=== PATIENT | female | born 1995 | race Caucasian/White ===

== ENCOUNTER 2020-09-14 17:56 | Emergency (ER) | payer OTHER ==
[2020-09-14 18:06] VITALS: BP 135/87
[2020-09-14] MEDS ORDERED: predniSONE 20 MG TABLET PO STA (19:07)
--- NOTE | 2020-09-14 19:07 | ED Physician Documentation ---
History of Present Illness - Stated complaint Stated Complaint: L ELBOW/SHOULDER PAIN - Chief complaint Chief Complaint: Ext Problem - History obtained from History obtained from: Patient - Additonal information Additional information: 25-year-old woman was lifting at work today and developed burning deep left arm pain from the shoulder down to the elbow. She feels like the sensation is scratchy in that arm. She has a history of some sort of neck surgery for "bunched up nerves." She has some neck pain 2. Review of Systems Constitutional: reports: Reviewed and negative Ears: reports: Reviewed and negative Nose: reports: Reviewed and negative Throat: reports: Reviewed and negative Cardiac: reports: Reviewed and negative Respiratory: reports: Reviewed and negative PD PAST MEDICAL HISTORY - Past Medical History Past Medical History: No - Past Surgical History Past Surgical History: No - Present Medications Home Medications: Ambulatory Orders Medication Instructions Recorded Confirmed predniSONE [Deltasone] 20 mg PO [id number] #21 tab 09/14/20 - Allergies Allergies/Adverse Reactions: Allergies Allergy/AdvReac Type Severity Reaction Status Date / Time No Known Drug Allergies Allergy Verified 09/14/20 18:06 - Social History Does the pt smoke?: No Smoking Status: Never smoker PD ED PE NORMAL - Vitals Vital signs reviewed: Yes - General General: Alert and oriented X 3, No acute distress - HEENT HEENT: PERRL, EOMI - Neck Neck: Supple, no meningeal sign, No bony TTP - Extremities Extremities: Other (Some tenderness of the left side of the neck, not in the midline. She has relatively full range of motion at the shoulder and elbow. 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 We will start some steroids. She declined pain medication. Departure - Departure Disposition: 01 Home, Self Care Clinical Impression: Cervical radiculopathy Condition: Good Record reviewed to determine appropriate education?: Yes Instructions: ED Cervical Radiculopathy Prescriptions: predniSONE [Deltasone] 20 mg PO [id number] #21 tab Comments: As discussed, this is most consistent with a pinched nerve in your neck. Follow-up with your physician if not rapidly better. Return for new or worsening symptoms. Forms: Activity restrictions
== END 2020-09-14 19:25 | disposition home or self-care (01) ==
LOC: ED 17:56
DX: M54.12 Radiculopathy, cervical region (principal)
CPT/HCPCS: 99282; 99284; J7512

== ENCOUNTER 2020-09-16 13:59 | Emergency (ER) | payer OTHER ==
[2020-09-16] MEDS ORDERED: HYDROmorphone 1 MG/ML CARPUJECT IM STA (17:06)
--- NOTE | 2020-09-16 17:08 | ED Physician Documentation ---
History of Present Illness - Stated complaint Stated Complaint: LFT ARM PX/NUMBNESS - Chief complaint Chief Complaint: Trauma Ext - Additonal information Additional information: 25-year-old woman Presents to the emergency department for evaluation of lower neck and left arm pain. She was seen in this emergency department 2 days ago for similar. She reports that she was doing dishes and lifting heavy mats when the pain began. She reports that the pain alternates between a burning sensation and a cold sensation that radiates down into her shoulder and left arm. She has a history of some sort of neck surgery for "bunched up nerves." Patient denies any falls or trauma. She was prescribed a 10-day course of prednisone for suspected nerve impingement with last ED visit however patient feels that the pain is worsened. Since being seen in the ER she has begun wearing a sling. Review of Systems Constitutional: reports: Reviewed and negative Ears: reports: Reviewed and negative Throat: reports: Reviewed and negative Cardiac: reports: Reviewed and negative Respiratory: reports: Reviewed and negative GI: reports: Reviewed and negative : reports: Reviewed and negative Skin: reports: Reviewed and negative Musculoskeletal: reports: Neck pain, Extremity pain (left arm) Neurologic: reports: Reviewed and negative Psychiatric: reports: Reviewed and negative PD PAST MEDICAL HISTORY - Past Medical History Past Medical History: Yes Other Past Medical History: IBS - Past Surgical History Past Surgical History: Yes - Present Medications Home Medications: Ambulatory Orders Medication Instructions Recorded Confirmed predniSONE [Deltasone] 20 mg PO [id number] #21 tab 09/14/20 09/16/20 Cyclobenzaprine [Flexeril] 10 mg PO TID PRN #20 tablet 09/16/20 - Allergies Allergies/Adverse Reactions: Allergies Allergy/AdvReac Type Severity Reaction Status Date / Time No Known Drug Allergies Allergy Verified 09/16/20 14:10 - Social History Does the pt smoke?: No Smoking Status: Never smoker Does the pt drink ETOH?: No Does the pt have substance abuse?: No - Immunizations Immunizations are current?: Yes - POLST Patient has POLST: No PD ED PE EXPANDED - General General: Alert, In Pain - Neck Neck: Limited ROM (Limited lateral rotation bilaterally 30 pain. No midline spinous tenderness. Tenderness of the left cervical paraspinous and trapezius muscles with palpation. No rash or erythema.). No: Stiff neck - Extremities Extremities: Left shoulder (No deformity. Full passive range of motion though Though active abduction and abduction is limited secondary to pain radiating from the neck and trapezius. 2+ distal radial pulse. Normal grasp of the left hand.) Results - Vitals Vitals: Vital Signs - 24 hr 09/16/20 14:10 Temperature 36.7 C Heart Rate 95 Respiratory 18 Rate Blood Pressure 150/66 H O2 Saturation 99 Oxygen O2 Source Room air - Rads (name of study) cervical spine xr Radiology: Final report received, EMP read indepedently PD MEDICAL DECISION MAKING - ED course Complexity details: reviewed results, re-evaluated patient, considered differential, d/w patient ED course: 25-year-old female presents the emergency department for evaluation of lower neck and left arm pain. At this began after she lifted heavy mats at work and was doing dishes. Seen for similar 2 days ago. She was started on a 10-day course of prednisone for suspected nerve entrapment. She has been wearing a shoulder immobilizer and feels now that the pain is worse. X-ray of the cervical spine does not show any acute findings. The formal read is pending. She was given 1 mg of Dilaudid here in the emergency department. Given that she has a history of neck surgery related to a nerve condition I suspected that she may continue to have a radiculopathy. I will recommend that she continue the prednisone but we will also start her on a short course of Flexeril. I have advised that she should establish with a primary care provider and have given her the name of [facility] as well as referring her to our orthopedic department. She has no nuchal rigidity or signs of infection. No falls trauma or deformity. Skin infection does not reveal any signs of cellulitis. Departure - Departure Disposition: 01 Home, Self Care Clinical Impression: Neck pain, Left arm pain Condition: Stable Record reviewed to determine appropriate education?: Yes Instructions: ED Neck Back Pain General Follow-Up: [facility] [Provider Group] [facility] [Provider Group] Prescriptions: Cyclobenzaprine [Flexeril] 10 mg PO TID PRN #20 tablet PRN Reason: Spasms Comments: Ellen hope that you are feeling better soon. The x-ray of your cervical spine does not show anything new or worrisome. However the burning sensation that you have often means that you have nerve inflammation. In the long-term you may benefit from an MRI of your neck. I would like you to continue the prednisone but I have also prescribed a muscle relaxer to be used to help with the pain over the next few days. Please be careful taking this it may make you sleepy or drowsy. Continue all your other medications as prescribed In the long-term you need a primary care doctor to manage your pain. Please schedule an appointment with [facility]. I would also like you to be seen at [facility] orthopedics. These are the doctors that deals specifically with bones and muscles and may be very helpful in the long-term.
[2020-09-16 18:09] VITALS: BP 127/73
--- NOTE | 2020-09-16 18:39 | XRAY Report ---
PROCEDURE: Cervical Spine 2 View INDICATIONS: r/o radiculopathy TECHNIQUE: 4 view(s) of the cervical spine were acquired. COMPARISON: None. FINDINGS: Bones: No fractures or dislocations to the C7 level. The lateral masses of C1 appear intact on the odontoid view. No suspicious bony lesions. Soft tissues: No prevertebral soft tissue swelling. IMPRESSION: No acute osseous abnormality. If clinically indicated consider follow-up CT or MRI of the cervical spine to evaluate the neural for amen. Reviewed by: Jose Eduardo Butler MD on 09/16/2020 6:37 PM [facility] Approved by: Jose Eduardo Butler MD on 09/16/2020 6:37 PM [facility] Station ID: [id number]
== END 2020-09-16 18:21 | disposition home or self-care (01) ==
LOC: ED 13:59
DX: M54.2 Cervicalgia (principal); M79.602 Pain in left arm; M25.512 Pain in left shoulder; X50.0XXA Overexertion from strenuous movement or load, initial encounter; Y99.0 Civilian activity done for income or pay
CPT/HCPCS: 72040; 99283; 99284; J1170

== ENCOUNTER 2020-10-06 11:27 | Outpatient (CLI) | payer OTHER ==
[2020-10-06 18:52] LABS: BASOPHILS % (AUTO) 0.3 %; EOSINOPHILS # (AUTO) 0.1 10^3/uL (0.0-0.7); EOSINOPHILS % (AUTO) 1.7 %; HGB - HEMOGLOBIN 13.9 g/dL (12.0-16.0); LYMPHOCYTES # (AUTO) 1.4 10^3/uL (1.5-3.5); LYMPHOCYTES % (AUTO) 22.1 %; MEAN CORPUSCULAR HEMOGLOBIN 29.8 pg (27.0-31.0); MEAN CORPUSCULAR HGB CONC 31.6 g/dL (32.0-36.0); MEAN CORPUSCULAR VOLUME 94.2 fL (81.0-99.0); MEAN PLATELET VOLUME 9.6 fL (7.9-10.8); MONOCYTES # (AUTO) 0.5 10^3/uL (0.0-1.0); NEUTROPHILS # (AUTO) 4.4 10^3/uL (1.5-6.6); NEUTROPHILS % (AUTO) 67.7 %; PLT - PLATELET COUNT 234 10^3/uL (130-450); RED BLOOD COUNT 4.67 10^6/uL (4.20-5.40); RED CELL DISTRIBUTION WIDTH 12.5 % (12.0-15.0); WHITE BLOOD COUNT 6.5 x10^3/uL (4.8-10.8)
[2020-10-06 19:01] LABS: ALBUMIN 4.3 g/dL (3.2-5.5); ALBUMIN/GLOBULIN RATIO 1.3 (1.0-2.2); BILIRUBIN,TOTAL 1.1 mg/dL (0.2-1.0); CALCIUM 9.4 mg/dL (8.5-10.3); CREATININE 0.9 mg/dL (0.4-1.0); TOTAL PROTEIN 7.7 g/dL (6.7-8.2)
== END 2020-10-06 11:28 | disposition home or self-care (01) ==
LOC: LAB.S 11:27
PROVIDERS: ATTEND Registered Nurse
DX: S13.4XXA Sprain of ligaments of cervical spine, initial encounter (principal)
CPT/HCPCS: 36415; 80053; 84443; 85025

== ENCOUNTER 2020-10-06 11:50 | Outpatient (CLI) | payer OTHER ==
--- NOTE | 2020-10-06 13:18 | XRAY Report ---
PROCEDURE: Cervical Spine 2 View INDICATIONS: SPRAIN OF CERVICAL SPINE LIGAMENTS TECHNIQUE: 3 view(s) of the cervical spine were acquired. COMPARISON: None. FINDINGS: Bones: Normal cervical spine vertebral body height and alignment. No significant degenerative changes . No suspicious lytic or blastic osseous lesion. Soft tissues: No prevertebral soft tissue swelling. IMPRESSION: No acute finding or significant degenerative changes. Reviewed by: Ted Maldonado MD on 10/06/2020 1:17 PM PST Approved by: Ted Maldonado MD on 10/06/2020 1:17 PM PST Station ID: [id number]
== END 2020-10-06 11:51 | disposition home or self-care (01) ==
LOC: DI.N 11:50
PROVIDERS: ATTEND Registered Nurse
DX: S13.4XXA Sprain of ligaments of cervical spine, initial encounter (principal)
CPT/HCPCS: 36415; 80053; 84443; 85025